=== PATIENT | male | born 1960 | race Caucasian/White ===

== ENCOUNTER 2018-07-16 23:34 | Emergency (ER) | payer MEDICAID ==
[~2018-07-16] VITALS: Ht 165.1 cm; Wt 63.5 kg
[2018-07-17 00:45] VITALS: BP 136/99
[2018-07-17 01:15] LABS: Basophils # (auto) 0 uL; Basophils % (auto) 0.3 % (0.0-2.0); Eosinophils # (auto) 0 uL; Eosinophils % (auto) 0.7 % (0.0-7.0); Hematocrit 35.9 % (41.0-53.0); Hemoglobin 12.1 g/dL (13.5-17.5); Lymphocytes # (auto) 0.8 uL; Mean Corpuscular Hemoglobin 33.7 pg (28.0-32.0); Mean Corpuscular Hgb Conc. 33.7 g/dL (32.0-36.0); Monocytes # (auto) 0.7 uL; Monocytes % (auto) 9.9 % (0.0-12.0); Neutrophils # (auto) 5.2 uL; Neutrophils % (auto) 77.1 % (37.0-80.0); Platelet Count (auto) 198 10^3/uL (140-450); Red Blood Cells 3.59 10^6/uL (4.5-5.90); Red Cell Distribution Width 13.9 % (11.8-14.3); White Blood Cell 6.8 10^3/uL (4.4-10.8)
[2018-07-17 01:30] LABS: Acetaminophen 4.5 ug/mL (10-30); Salicylate < 1.7 mg/dL (2.8-20.0)
[2018-07-17 01:32] LABS: Albumin 3.7 g/dL (3.4-5.0); Anion Gap 9 (5-15); BUN/Creatinine Ratio 5.7; Blood Alcohol < 3.0 mg/dL (0-5); Blood Urea Nitrogen 5 mg/dL (7-18); Calcium 8.1 mg/dL (8.5-10.1); Carbon Dioxide 25 mmol/L (21-32); Chloride 99 mmol/L (98-107); GFR African American 115 mL/min; GFR Non-African American 95 mL/min; Glucose 88 mg/dL (74-106); Sodium 133 mmol/L (136-145)
[2018-07-17 01:35] LABS: Alanine Aminotransferase 22 U/L (16-61); Alkaline Phosphatase 72 U/L (45-117); Aspartate Aminotransferase 30 U/L (15-37); Bilirubin, Total 0.6 mg/dL (0.2-1.0); Total Protein 6.6 g/dL (6.4-8.2)
[2018-07-17] MEDS ORDERED: POTASSIUM EFFERVESENT TAB 25 MEQ GT ONE (03:00)
== END 2018-07-17 05:19 | disposition home or self-care (01) ==
LOC: EDBD 23:34 → ER 23:42
DX: I10 Essential (primary) hypertension (principal); F43.9 Reaction to severe stress, unspecified; E87.6 Hypokalemia; F41.9 Anxiety disorder, unspecified; F32.9 Major depressive disorder, single episode, unspecified; E78.5 Hyperlipidemia, unspecified
CPT/HCPCS: 36415; 80053; 80320; 80329; 85025